=== PATIENT | female | born 1985 | race Caucasian/White ===

== ENCOUNTER 2016-09-27 13:15 | Observation (INO) | payer OTHER ==
[~2016-09-27] VITALS: Ht 149.9 cm; Wt 54.4 kg
[~2016-09-27 13:15] MED LIST: CIPRO500 MG PO; COLACE100 MG PO; HABITROL 21 MG P1 EA TD; HUMALOG100 UNIT/1 SQ; HYDROXYZINE HCL25 MG PO; LAMICTAL ODT50 MG PO; LAMICTAL25 MG PO; LANTUS SOL100 UNIT/1 SQ; LANTUS100 UNIT/1 SQ; NEURONTIN 300300 MG PO; NICOTINE PATCH1 EAC1 TD; PAXIL 20 MG TAB20 MG PO; PRILOSEC20 MG PO; PROTONIX40 MG PO; SENOKOT-S TABL1 EACH PO; ZOFRAN 4 MG TAB4 MG PO
[2016-09-27 14:14] LABS: HEMOGLOBIN 16.8 gm/dl (12.3-15.3); RED BLOOD COUNT 5.41 M/UL (4.00-5.10); WHITE BLOOD COUNT 19.2 K/UL (4.5-11.0)
[2016-09-27 16:48] LABS: BUN/CREATININE RATIO 19 (0-10)
[2016-09-27 18:39] LABS: BUN/CREATININE RATIO 16 (0-10)
[2016-09-27 21:53] LABS: BUN/CREATININE RATIO 15 (0-10)
[2016-09-28 02:16] LABS: RED BLOOD COUNT 4.24 M/UL (4.00-5.10); WHITE BLOOD COUNT 8.8 K/UL (4.5-11.0)
[2016-09-28 02:17] LABS: HEMOGLOBIN 13.1 gm/dl (12.3-15.3)
[2016-09-28 02:29] LABS: BUN/CREATININE RATIO 14 (0-10)
[2016-09-28 06:32] LABS: BUN/CREATININE RATIO 12 (0-10)
[2016-09-28 11:04] LABS: BUN/CREATININE RATIO 13 (0-10)
[2016-09-28 14:47] LABS: BUN/CREATININE RATIO 10 (0-10)
[2016-09-28 18:13] LABS: BUN/CREATININE RATIO 8 (0-10)
[2016-09-28 22:28] LABS: BUN/CREATININE RATIO 8 (0-10)
[2016-09-29 02:17] LABS: HEMOGLOBIN 11.9 gm/dl (12.3-15.3); RED BLOOD COUNT 3.89 M/UL (4.00-5.10); WHITE BLOOD COUNT 4.6 K/UL (4.5-11.0)
[2016-09-29 02:36] LABS: BUN/CREATININE RATIO 5 (0-10)
[2016-09-29 06:14] LABS: BUN/CREATININE RATIO 5 (0-10)
[2016-09-29 10:46] LABS: BUN/CREATININE RATIO 3 (0-10)
[2016-09-29 14:33] LABS: BUN/CREATININE RATIO 2 (0-10)
[2016-09-29 17:52] LABS: BUN/CREATININE RATIO 5 (0-10)
[2017-01-10] MEDS ORDERED: SYMBICORT 80-10.2 GM INH (16:13)
[2017-01-10] MEDS ORDERED: VENTOLIN HFA 66.7 GM INH (16:14)
[2017-01-10] MEDS ORDERED: LANTUS SOL100 UNIT/1 SQ (16:15)
== END 2016-09-29 21:00 | disposition home or self-care (01) ==
LOC: ER1 13:15 → ZEROF 15:45 → CCU 15:45 → ZEROF 15:45 → CCU 20:25
PROVIDERS: Emergency Medicine; ADMIT Internal Medicine
DX: E10.10 Type 1 diabetes mellitus with ketoacidosis without coma (principal); E87.6 Hypokalemia; D72.829 Elevated white blood cell count, unspecified; F41.9 Anxiety disorder, unspecified; F32.9 Major depressive disorder, single episode, unspecified; F12.10 Cannabis abuse, uncomplicated; F17.200 Nicotine dependence, unspecified, uncomplicated; Z82.49 Family history of ischemic heart disease and other diseases of the circulatory system; Z83.3 Family history of diabetes mellitus; Z88.5 Allergy status to narcotic agent; Z79.899 Other long term (current) drug therapy; Z91.19 Patient's noncompliance with other medical treatment and regimen
CPT/HCPCS: 36415; 36600; 71010; 80048; 80053; 81001; 82009; 82803; 82962; 83605; 83735; 84703; 85007; 85025; 85027; 87086; 93005; 96360; 96361; 99291; G0378; J1815; J7030; J7050; Q0177

== ENCOUNTER 2016-12-04 12:06 | Inpatient (IN) | payer OTHER ==
[~2016-12-04] VITALS: Ht 144.8 cm; Wt 56.5 kg
[2016-12-04 14:26] LABS: HEMOGLOBIN 17.2 gm/dl (12.3-15.3); RED BLOOD COUNT 5.49 M/UL (4.00-5.10); WHITE BLOOD COUNT 20.1 K/UL (4.5-11.0)
[2016-12-04 15:24] LABS: BUN/CREATININE RATIO 20 (0-10)
[2016-12-04] MEDS ORDERED: SINGULAIR10 MG PO (20:13)
[2016-12-04] MEDS ORDERED: ROBAXIN 750 MG750 MG PO (20:14)
[2016-12-04] MEDS ORDERED: CLINDAMYCIN TP (20:16)
[2016-12-04] MEDS ORDERED: VOLTAREN EC 7575 MG PO (20:19)
[2016-12-04 21:05] LABS: BUN/CREATININE RATIO 20 (0-10)
[2016-12-05 01:00] LABS: BUN/CREATININE RATIO 14 (0-10)
[2016-12-05 04:29] LABS: RED BLOOD COUNT 4.38 M/UL (4.00-5.10); WHITE BLOOD COUNT 9.3 K/UL (4.5-11.0)
[2016-12-05 04:30] LABS: HEMOGLOBIN 13.3 gm/dl (12.3-15.3)
[2016-12-05 04:36] LABS: BUN/CREATININE RATIO 10 (0-10)
[2016-12-05 09:03] LABS: BUN/CREATININE RATIO 10 (0-10)
[2016-12-05 12:39] LABS: BUN/CREATININE RATIO 7 (0-10)
[2017-01-10] MEDS ORDERED: SYMBICORT 80-10.2 GM INH (16:13)
[2017-01-10] MEDS ORDERED: VENTOLIN HFA 66.7 GM INH (16:14)
[2017-01-10] MEDS ORDERED: LANTUS SOL100 UNIT/1 SQ (16:15)
== END 2016-12-05 19:21 | disposition home or self-care (01) | DRG 639 ==
LOC: ER1 12:06 → ZEROF 17:24 → CCU 19:58
PROVIDERS: Specialist/Technologist Athletic Trainer; ADMIT Internal Medicine
DX: E10.10 Type 1 diabetes mellitus with ketoacidosis without coma (principal); D75.1 Secondary polycythemia; Z91.19 Patient's noncompliance with other medical treatment and regimen; F41.9 Anxiety disorder, unspecified; F32.9 Major depressive disorder, single episode, unspecified; F17.200 Nicotine dependence, unspecified, uncomplicated; Z88.8 Allergy status to other drugs, medicaments and biological substances; Z83.3 Family history of diabetes mellitus
CPT/HCPCS: 36415; 71010; 80048; 80053; 81001; 82009; 82550; 82800; 82962; 83036; 83690; 83735; 84703; 85025; 85027; 87086; 93005; 94664; 96361; 96374; 99285; J1815; J2405; J7050; Q0177

== ENCOUNTER 2020-08-04 12:47 | Emergency (ER) | payer OTHER ==
[~2020-08-04 12:47] MED LIST changes: +ADMELOG SO100 UNIT/1 SC; +ADMELOG SQ; +ADMELOG100 UNIT/1 SQ; +ALBUTEROL0.63 MG/3 INH; +ALBUTEROL2.5 MG/3 M INH; +ALPHAGAN P OP SO5 ML OU; +BASAGLAR K100 UNIT/1 SC; +BASAGLAR K100 UNIT/1 SQ; +BUSPAR 5MG TABLE5 MG PO; +BUSPIRONE HCL15 MG PO; +CARAFATE1 GM PO; +CLARITIN 10MG T10 MG PO; +CLARITIN10 M2 PO; +CLINDAMYCIN TP; +COLACE 100MG C100 MG PO; +COMBIGAN EYE DRO5 ML EYEBOTH; +COREG 3.125M3.125 MG PO; +DESYREL 50 MG T50 MG PO; +DEX4 GLUCOSE4 GM PO; +DULERA 100 MCG8.8 GM INH; +ELAVIL 10 MG TA10 MG PO; +FERROUS SULFAT324 MG PO; +FERROUS SULFAT325 M2 PO; +FERROUS SULFAT325 MG PO; +FLORANEX GRANU1 EACH PO; +GABAPENTIN300 MG PO; +GLUCOPHAGE500 MG PO; +HUMALOG 10100 UNITS/ SC; +HUMALOG100 UNIT/2 SC; +HYDRALAZINE HCL25 MG PO; +IMODIUM CAP 2 MG2 MG PO; +JANUVIA100 MG PO; +K-DUR TAB 10 M10 MEQ PO; +LAMOTRIGINE25 MG PO; +LANTUS INS100 UTS/M1 SQ; +LATANOPROST 0.7.5 ML OU; +LEXAPRO TAB 1010 MG PO; +LIPITOR40 MG PO; +MONTELUKAST SOD10 MG PO; +NEBULIZER UNIT NEB; +NEURONTIN 400400 MG PO; +NEURONTIN300 MG PO; +NORCO 5-325 TA1 EACH PO; +OMNICEF 300 MG300 MG PO; +ONDANSETRON ODT4 MG PO; +PANTOPRAZOLE SO40 MG PO; +PAXIL20 MG PO; +PHENERGAN 12.12.5 MG PR; +PHENERGAN 25 MG25 M1 PO; +PHOS-NAK PACKET1 EA PO; +PRILOSEC OTC20 MG PO; +PROAIR HFA8.5 GM INH; +PROZAC 20 MG CA20 MG PO; +ROBAXIN 750 MG750 MG PO; +ROBAXIN-750750 MG PO; +SINGULAIR10 MG PO; +SYMBICORT 80-10.2 GM INH; +TOPAMAX 25 MG T25 MG PO; +VANCOMYCIN 50 MG/ML PO; +VANCOMYCIN HCL125 MG PO; +VENTOLIN HFA 66.7 GM INH; +VOLTAREN EC 7575 MG PO; +XALATAN OP SOL2.5 ML OU; +ZOFRAN ODT 4 MG4 MG PO; +ZOFRAN4 MG PO; +[UNRECOGNIZED DRUG - REMARK]
[2020-08-04 13:14] LABS: HEMOGLOBIN 12.3 gm/dl (12.3-15.3); RED BLOOD COUNT 4.51 M/UL (4.00-5.10); WHITE BLOOD COUNT 19.9 K/UL (4.5-11.0)
[2020-08-04 13:39] LABS: BUN/CREATININE RATIO 30 (0-10)
[2020-08-04 15:18] LABS: BUN/CREATININE RATIO 34 (0-10)
[2020-08-04 18:05] LABS: BUN/CREATININE RATIO 33 (0-10)
== END 2020-08-04 21:00 | disposition short-term general hospital (02) ==
LOC: ER1 12:47
PROVIDERS: Internal Medicine; Physician Assistant
DX: E10.10 Type 1 diabetes mellitus with ketoacidosis without coma (principal); G93.41 Metabolic encephalopathy; I10 Essential (primary) hypertension; F41.9 Anxiety disorder, unspecified; F32.9 Major depressive disorder, single episode, unspecified; F19.10 Other psychoactive substance abuse, uncomplicated; F17.200 Nicotine dependence, unspecified, uncomplicated; Z87.19 Personal history of other diseases of the digestive system; Z88.2 Allergy status to sulfonamides; Z88.8 Allergy status to other drugs, medicaments and biological substances; Z91.040 Latex allergy status; Z91.14 Patient's other noncompliance with medication regimen; Z20.822 Contact with and (suspected) exposure to COVID-19
CPT/HCPCS: 36600; 71045; 80048; 80053; 80307; 81001; 82009; 82803; 82962; 83690; 84703; 85025; 96374; 96375; 99285; G0480; J2405; J7030; U0002

== ENCOUNTER 2020-08-14 20:35 | Emergency (ER) | payer OTHER ==
[2020-08-15] MEDS ORDERED: ELAVIL 10 MG TA10 MG PO (10:15)
[2020-08-15] MEDS ORDERED: CLARITIN10 MG PO (10:18)
[2020-08-15] MEDS ORDERED: VENTOLIN HFA 66.7 GM INH (12:01)
== END 2020-08-14 21:47 | disposition left against medical advice (07) ==
LOC: ER1 20:35
DX: Z53.8 Procedure and treatment not carried out for other reasons (principal)
CPT/HCPCS: 82962; J7030

== ENCOUNTER 2020-08-15 09:33 | Inpatient (IN) | payer OTHER ==
[~2020-08-15] VITALS: Ht 152.4 cm; Wt 51.3 kg
[2020-08-15] MEDS ORDERED: ELAVIL 10 MG TA10 MG PO (10:15)
[2020-08-15] MEDS ORDERED: CLARITIN10 MG PO (10:18)
[2020-08-15 10:23] LABS: RED BLOOD COUNT 4.74 M/UL (4.00-5.10); WHITE BLOOD COUNT 11.6 K/UL (4.5-11.0)
[2020-08-15 10:51] LABS: BUN/CREATININE RATIO 16 (0-10)
[2020-08-15] MEDS ORDERED: VENTOLIN HFA 66.7 GM INH (12:01)
[2020-08-15 13:45] LABS: BUN/CREATININE RATIO 16 (0-10)
[2020-08-15 15:24] LABS: BUN/CREATININE RATIO 17 (0-10)
[2020-08-15 20:30] LABS: BUN/CREATININE RATIO 12 (0-10)
[2020-08-16 00:51] LABS: BUN/CREATININE RATIO 7 (0-10)
[2020-08-16 05:10] LABS: HEMOGLOBIN 10.2 gm/dl (12.3-15.3); RED BLOOD COUNT 3.82 M/UL (4.00-5.10); WHITE BLOOD COUNT 4.7 K/UL (4.5-11.0)
[2020-08-16 05:27] LABS: BUN/CREATININE RATIO 8 (0-10)
[2020-08-17 03:32] LABS: BUN/CREATININE RATIO 22 (0-10)
--- NOTE | 2020-08-17 16:16 | NUR ---
BLOOD SUGAR 145MG/DL
[2020-08-18 06:46] LABS: BUN/CREATININE RATIO 24 (0-10)
[2020-08-18] MEDS ORDERED: COREG 3.125M3.125 MG PO (09:06)
[2020-08-18] MEDS ORDERED: VENTOLIN HFA 66.7 GM INH (09:06)
[2020-08-18] MEDS ORDERED: LIPITOR40 MG PO (09:06)
[2020-08-18] MEDS ORDERED: BUSPIRONE HCL15 MG PO (09:07)
[2020-08-18] MEDS ORDERED: MONTELUKAST SOD10 MG PO (09:07)
[2020-08-18] MEDS ORDERED: PROZAC 20 MG CA20 MG PO (09:07)
[2020-08-18] MEDS ORDERED: NEURONTIN300 MG PO (09:07)
[2020-08-18] MEDS ORDERED: PROTONIX40 MG PO (09:07)
[2020-08-18] MEDS ORDERED: TOPAMAX 25 MG T25 MG PO (09:07)
[2020-08-18] MEDS ORDERED: HUMALOG100 UNIT/2 SC (09:07)
[2020-08-18] MEDS ORDERED: BASAGLAR K100 UNIT/1 SC (09:07)
[2020-08-18] MEDS ORDERED: ELAVIL 10 MG TA10 MG PO (09:07)
[2020-08-18] MEDS ORDERED: HUMALOG 10100 UNITS/ SC (09:07)
== END 2020-08-18 11:35 | disposition home or self-care (01) | DRG 638 ==
LOC: ER1 09:33 → CDU 11:20 → CCU 17:01 → M/S 08-16 14:26
PROVIDERS: Emergency Medicine; Physician Assistant; ADMIT Internal Medicine
DX: E10.10 Type 1 diabetes mellitus with ketoacidosis without coma (principal); R65.10 Systemic inflammatory response syndrome (SIRS) of non-infectious origin without acute organ dysfunction; Z91.19 Patient's noncompliance with other medical treatment and regimen; I50.9 Heart failure, unspecified; Z20.822 Contact with and (suspected) exposure to COVID-19; F17.210 Nicotine dependence, cigarettes, uncomplicated; I10 Essential (primary) hypertension; G40.909 Epilepsy, unspecified, not intractable, without status epilepticus; F41.9 Anxiety disorder, unspecified; F32.9 Major depressive disorder, single episode, unspecified; Z79.4 Long term (current) use of insulin; Z79.899 Other long term (current) drug therapy; Z88.8 Allergy status to other drugs, medicaments and biological substances; Z91.040 Latex allergy status; E86.1 Hypovolemia; E86.0 Dehydration
CPT/HCPCS: 36415; 36600; 71045; 80048; 80053; 82009; 82550; 82553; 82803; 82962; 83605; 83735; 83874; 83880; 84132; 84484; 84703; 85025; 87040; 93005; 96365; 96366; 96375; 99285; J1650; J2405; J3475; J7030; U0002

== ENCOUNTER 2020-09-03 02:22 | Inpatient (IN) | payer OTHER ==
[~2020-09-03] VITALS: Ht 152.4 cm; Wt 49.9 kg
[~2020-09-03 02:22] MED LIST changes: +CLARITIN10 MG PO
[2020-09-03 03:04] LABS: HEMOGLOBIN 13.5 gm/dl (12.3-15.3); RED BLOOD COUNT 5.02 M/UL (4.00-5.10); WHITE BLOOD COUNT 17.9 K/UL (4.5-11.0)
[2020-09-03 03:25] LABS: BUN/CREATININE RATIO 25 (0-10)
[2020-09-03 08:41] LABS: BUN/CREATININE RATIO 25 (0-10)
[2020-09-03 11:20] LABS: BUN/CREATININE RATIO 30 (0-10)
[2020-09-03 15:33] LABS: BUN/CREATININE RATIO 23 (0-10)
[2020-09-03 20:57] LABS: BUN/CREATININE RATIO 21 (0-10)
[2020-09-03] MEDS ORDERED: PROZAC40 MG PO (21:54)
[2020-09-03 23:33] LABS: BUN/CREATININE RATIO 15 (0-10)
[2020-09-04 03:22] LABS: HEMOGLOBIN 9.9 gm/dl (12.3-15.3); RED BLOOD COUNT 3.74 M/UL (4.00-5.10); WHITE BLOOD COUNT 7.2 K/UL (4.5-11.0)
[2020-09-04 03:55] LABS: BUN/CREATININE RATIO 10 (0-10)
[2020-09-04 12:21] LABS: BUN/CREATININE RATIO 11 (0-10)
[2020-09-04 16:53] LABS: BUN/CREATININE RATIO 9 (0-10)
[2020-09-04 20:34] LABS: BUN/CREATININE RATIO 7 (0-10)
[2020-09-05 05:12] LABS: RED BLOOD COUNT 3.39 M/UL (4.00-5.10)
[2020-09-05 05:18] LABS: WHITE BLOOD COUNT 4.6 K/UL (4.5-11.0)
[2020-09-05 12:10] LABS: BUN/CREATININE RATIO 3 (0-10)
== END 2020-09-05 14:20 | disposition home or self-care (01) | DRG 638 ==
LOC: ER1 02:22 → CDU 12:44 → CCU 12:44
PROVIDERS: Family Medicine; Physician Assistant Medical; Student in an Organized Health Care Education/Training Program; ADMIT Internal Medicine
DX: E10.10 Type 1 diabetes mellitus with ketoacidosis without coma (principal); R65.10 Systemic inflammatory response syndrome (SIRS) of non-infectious origin without acute organ dysfunction; I10 Essential (primary) hypertension; D72.829 Elevated white blood cell count, unspecified; E83.42 Hypomagnesemia; E87.6 Hypokalemia; G40.909 Epilepsy, unspecified, not intractable, without status epilepticus; E10.65 Type 1 diabetes mellitus with hyperglycemia; Z20.822 Contact with and (suspected) exposure to COVID-19; F41.9 Anxiety disorder, unspecified; F32.9 Major depressive disorder, single episode, unspecified; Z91.14 Patient's other noncompliance with medication regimen; Z79.4 Long term (current) use of insulin; Z88.2 Allergy status to sulfonamides; Z88.8 Allergy status to other drugs, medicaments and biological substances; Z91.040 Latex allergy status; Z79.899 Other long term (current) drug therapy
CPT/HCPCS: 36415; 36600; 71045; 80048; 80053; 82009; 82550; 82553; 82803; 82962; 83690; 83735; 84132; 84484; 84702; 85025; 85027; 93005; 94640; 94664; 94760; 96365; 96366; 96372; 96375; 96376; 99285; J1650; J2405; J3475; J3480; J7030; U0002

== ENCOUNTER 2020-09-08 14:32 | Inpatient (IN) | payer OTHER ==
[~2020-09-08] VITALS: Ht 152.4 cm; Wt 53.2 kg
[~2020-09-08 14:32] MED LIST changes: +PROZAC40 MG PO
[2020-09-08 16:07] LABS: RED BLOOD COUNT 4.28 M/UL (4.00-5.10); WHITE BLOOD COUNT 26.9 K/UL (4.5-11.0)
[2020-09-08 16:42] LABS: HEMOGLOBIN 11.6 gm/dl (12.3-15.3)
[2020-09-08 19:08] LABS: BUN/CREATININE RATIO 22 (0-10)
[2020-09-08] MEDS ORDERED: HUMALOG 10100 UNITS/ SC (22:37)
[2020-09-08 22:52] LABS: BUN/CREATININE RATIO 23 (0-10)
[2020-09-09 02:34] LABS: BUN/CREATININE RATIO 21 (0-10)
[2020-09-09 05:33] LABS: RED BLOOD COUNT 3.37 M/UL (4.00-5.10); WHITE BLOOD COUNT 14.3 K/UL (4.5-11.0)
[2020-09-09 05:51] LABS: BUN/CREATININE RATIO 18 (0-10)
[2020-09-09 16:34] LABS: BUN/CREATININE RATIO 12 (0-10)
[2020-09-10 03:41] LABS: BUN/CREATININE RATIO 12 (0-10)
[2020-09-10] MEDS ORDERED: BASAGLAR K100 UNIT/1 SC (12:01)
[2020-09-10] MEDS ORDERED: HUMALOG 10100 UNITS/ SC ×2 (12:01)
== END 2020-09-10 17:57 | disposition home or self-care (01) | DRG 637 ==
LOC: ER1 14:32 → CDU 17:14 → CCU 22:06 → M/S 09-09 19:22
PROVIDERS: Preventive Medicine Occupational Medicine; ADMIT Family Medicine
DX: E10.10 Type 1 diabetes mellitus with ketoacidosis without coma (principal); K85.90 Acute pancreatitis without necrosis or infection, unspecified; G93.41 Metabolic encephalopathy; R65.11 Systemic inflammatory response syndrome (SIRS) of non-infectious origin with acute organ dysfunction; Z20.822 Contact with and (suspected) exposure to COVID-19; F32.9 Major depressive disorder, single episode, unspecified; F41.9 Anxiety disorder, unspecified; D72.829 Elevated white blood cell count, unspecified; I10 Essential (primary) hypertension; G40.909 Epilepsy, unspecified, not intractable, without status epilepticus; Z88.2 Allergy status to sulfonamides; Z88.8 Allergy status to other drugs, medicaments and biological substances; Z91.14 Patient's other noncompliance with medication regimen; Z91.040 Latex allergy status; Z79.899 Other long term (current) drug therapy; Z79.4 Long term (current) use of insulin
CPT/HCPCS: 36415; 36556; 36600; 71045; 80048; 80053; 80307; 81001; 82009; 82803; 82962; 83036; 83605; 83690; 83735; 84100; 85025; 85652; 86140; 87040; 87086; 96365; 96366; 96368; 96375; 96376; 99285; C1751; C9113; G0480; J0696; J1650; J2405; J7030; Q9967; U0002

== ENCOUNTER 2020-09-28 05:29 | Inpatient (IN) | payer OTHER ==
[~2020-09-28] VITALS: Ht 160 cm; Wt 63.5 kg
[2020-09-28 05:55] LABS: HEMOGLOBIN 11.1 gm/dl (12.3-15.3); RED BLOOD COUNT 4.25 M/UL (4.00-5.10); WHITE BLOOD COUNT 22.1 K/UL (4.5-11.0)
[2020-09-28 15:35] LABS: BUN/CREATININE RATIO 24 (0-10)
[2020-09-28 19:13] LABS: BUN/CREATININE RATIO 25 (0-10)
[2020-09-29 02:38] LABS: BUN/CREATININE RATIO 22 (0-10)
[2020-09-29 07:05] LABS: BUN/CREATININE RATIO 19 (0-10)
[2020-09-29 13:48] LABS: BUN/CREATININE RATIO 11 (0-10)
[2020-09-29 17:37] LABS: BUN/CREATININE RATIO 13 (0-10)
[2020-09-29 21:43] LABS: BUN/CREATININE RATIO 9 (0-10)
[2020-09-30 01:52] LABS: BUN/CREATININE RATIO 8 (0-10)
[2020-09-30 05:17] LABS: HEMOGLOBIN 8.4 gm/dl (12.3-15.3); RED BLOOD COUNT 3.22 M/UL (4.00-5.10)
[2020-09-30 05:33] LABS: BUN/CREATININE RATIO 9 (0-10)
[2020-09-30] MEDS ORDERED: ZOFRAN ODT 4 MG4 MG PO (09:22)
== END 2020-09-30 10:38 | disposition home or self-care (01) | DRG 637 ==
LOC: ER1 05:29 → CCU 08:52 → 2 EAST 10:01 → CCU 10:02
PROVIDERS: Emergency Medicine; ADMIT Internal Medicine
PROC: 02HV33Z Insertion of Infusion Device into Superior Vena Cava, Percutaneous Approach (ICD-10-PCS; principal; 2020-09-28)
PROC: B548ZZA Ultrasonography of Superior Vena Cava, Guidance (ICD-10-PCS; 2020-09-28)
DX: E10.10 Type 1 diabetes mellitus with ketoacidosis without coma (principal); R65.11 Systemic inflammatory response syndrome (SIRS) of non-infectious origin with acute organ dysfunction; G93.41 Metabolic encephalopathy; J18.9 Pneumonia, unspecified organism; N17.9 Acute kidney failure, unspecified; I10 Essential (primary) hypertension; T68.XXXA Hypothermia, initial encounter; F41.9 Anxiety disorder, unspecified; Z20.822 Contact with and (suspected) exposure to COVID-19; F32.9 Major depressive disorder, single episode, unspecified; Z91.14 Patient's other noncompliance with medication regimen
CPT/HCPCS: 36415; 36600; 71045; 80048; 80053; 80307; 81001; 82009; 82803; 82962; 83605; 83690; 83735; 84703; 85025; 85027; 87040; 93005; 94640; 94664; 94760; 96365; 96375; 99285; J2405; J2543; J3480; J7030; J7070; U0002

== ENCOUNTER → 2020-12-27 | Outpatient (CLI) | payer OTHER ==
[2020-12-27 12:54] LABS: RED BLOOD COUNT 5.22 M/UL (4.00-5.10); WHITE BLOOD COUNT 6.7 K/UL (4.5-11.0)
[2020-12-27 13:40] LABS: BUN/CREATININE RATIO 28 (0-10)
[2020-12-28 16:15] LABS: LYME IGG/IGM AB <0.91 ISR (0.00-0.90)
== END ==
LOC: LAB 10:48
PROVIDERS: Nurse Practitioner Family
DX: E78.5 Hyperlipidemia, unspecified (principal); W57.XXXA Bitten or stung by nonvenomous insect and other nonvenomous arthropods, initial encounter
CPT/HCPCS: 36415; 80053; 80061; 85025; 86140; 86618; 86757

== ENCOUNTER 2021-01-22 14:20 | Inpatient (IN) | payer OTHER ==
[~2021-01-22] VITALS: Ht 160 cm; Wt 63.5 kg
[2021-01-22 15:23] LABS: HEMOGLOBIN 12.4 gm/dl (12.3-15.3); RED BLOOD COUNT 5.77 M/UL (4.00-5.10)
[2021-01-22 15:47] LABS: BUN/CREATININE RATIO 19 (0-10)
[2021-01-22 17:24] LABS: BUN/CREATININE RATIO 20 (0-10)
[2021-01-22 20:29] LABS: BUN/CREATININE RATIO 20 (0-10)
[2021-01-23 01:18] LABS: BUN/CREATININE RATIO 18 (0-10)
[2021-01-23 04:42] LABS: HEMOGLOBIN 9.7 gm/dl (12.3-15.3); RED BLOOD COUNT 4.44 M/UL (4.00-5.10); WHITE BLOOD COUNT 12.1 K/UL (4.5-11.0)
[2021-01-23 04:51] LABS: BUN/CREATININE RATIO 17 (0-10)
[2021-01-23 08:42] LABS: BUN/CREATININE RATIO 14 (0-10)
[2021-01-23 14:15] LABS: ACINETOBACTER BAUMANNII Not Detected (Negative); CANDIDA ALBICANS Not Detected (Negative); CANDIDA KRUSEI Not Detected (Negative); CANDIDA TROPICALIS Not Detected (Negative); ENTEROCOCCUS Not Detected (Negative); ESCHERICHIA COLI Not Detected (Negative); HAEMOPHILUS INFLUENZAE Not Detected (Negative); KLEBSIELLA OXYTOCA Not Detected (Negative); KLEBSIELLA PNEUMONIAE Not Detected (Negative); KPC-CARBAPENEM-RESISTANCE GENE Not Detected (Negative); PROTEUS Not Detected (Negative); PSEUDOMONAS AERUGINOSA Not Detected (Negative); SERRATIA MARCESANS Not Detected (Negative); STAPHYLOCOCCUS AUREUS Not Detected (Negative); STREP AGALACTIAE (GROUP B) Not Detected (Negative); STREP PYOGENES (GROUP A) Not Detected (Negative); STREPTOCOCCUS Not Detected (Negative); vanA/B (VANCOMYCIN RESIST GENE Not Detected (Negative)
[2021-01-23 15:43] LABS: STAPHYLOCOCCUS DETECTED (Negative); mecA (METHICILLIN RESIST GENE DETECTED (Negative)
[2021-01-23 15:57] LABS: BUN/CREATININE RATIO 13 (0-10)
[2021-01-24 05:17] LABS: HEMOGLOBIN 9.8 gm/dl (12.3-15.3); RED BLOOD COUNT 4.57 M/UL (4.00-5.10)
[2021-01-24 05:18] LABS: WHITE BLOOD COUNT 5.7 K/UL (4.5-11.0)
[2021-01-24 05:50] LABS: BUN/CREATININE RATIO 11 (0-10)
== END 2021-01-24 15:05 | disposition left against medical advice (07) | DRG 637 ==
LOC: ER1 14:20 → CDU 16:44 → CCU 16:44
PROVIDERS: Internal Medicine; Physician Assistant; Student in an Organized Health Care Education/Training Program; ADMIT Internal Medicine
PROC: 02HV33Z Insertion of Infusion Device into Superior Vena Cava, Percutaneous Approach (ICD-10-PCS; principal; 2021-01-22)
PROC: B548ZZA Ultrasonography of Superior Vena Cava, Guidance (ICD-10-PCS; 2021-01-22)
DX: E10.10 Type 1 diabetes mellitus with ketoacidosis without coma (principal); G93.41 Metabolic encephalopathy; B95.62 Methicillin resistant Staphylococcus aureus infection as the cause of diseases classified elsewhere; G40.909 Epilepsy, unspecified, not intractable, without status epilepticus; F41.9 Anxiety disorder, unspecified; F32.9 Major depressive disorder, single episode, unspecified; Z91.14 Patient's other noncompliance with medication regimen; Z88.2 Allergy status to sulfonamides; Z88.8 Allergy status to other drugs, medicaments and biological substances; Z91.040 Latex allergy status
CPT/HCPCS: 0240U; 36415; 36556; 36600; 51702; 71045; 80048; 80053; 80202; 80307; 81001; 82009; 82550; 82553; 82803; 82962; 83605; 83690; 83735; 83874; 84100; 84132; 84484; 84702; 85025; 85384; 85610; 86140; 87040; 87077; 87150; 87186; 93005; 96374; 96375; 99285; J0692; J1170; J1630; J2060; J2405; J2543; J2765; J3370; J3480; J7070

== ENCOUNTER → 2021-05-29 | Outpatient (CLI) | payer OTHER | LOC: RAD 10:11 | DX: M54.50 Low back pain, unspecified (principal); M25.561 Pain in right knee | CPT/HCPCS: 72110; 73562 ==

== ENCOUNTER → 2022-03-21 | Outpatient (CLI) | payer OTHER | LOC: KOH-I 03-07 13:00 | DX: M54.50 Low back pain, unspecified (principal); M54.2 Cervicalgia; R59.0 Localized enlarged lymph nodes | CPT/HCPCS: 72100; 76536 ==